=== PATIENT | female | born 1980 | race Caucasian/White ===

== ENCOUNTER 2022-11-07 08:40 | Outpatient (OUT) | payer OTHER, SELFPAY ==
--- NOTE | 2022-11-07 09:37 | PM.PRESUREVA ---
History of Present Illness History of Present Illness Chief complaint: menorrhagia, fibroids Narrative: Patient presents for preadmission testing. The patient reports a recent history of heavy abnormal uterine bleeding outside of her usual menstrual bleeding. She states since her visit with Dr. Raya she was placed on my Myfembree, and her bleeding has ceased. She denies fever, nausea, vomiting, or any other complaints. Review of Systems ROS Narrative REVIEW OF SYSTEMS: Negative except as stated in HPI, ten or more systems reviewed. Constitutional: No fever , chills, weakness ENT: No sore throat or epistaxis Cardiovascular: No edema, chest pain, palpitations, or activity intolerance Respiratory: No shortness of breath, cough, or wheezing Musculoskeletal: No joint pain or swelling Gastrointestinal: No abdominal pain, constipation, diarrhea, or vomiting Genitourinary: No dysuria or hematuria Neurological: No numbness, tingling, weakness, or headache Psychiatric: No mood changes PFSH PFSH Medical History (Updated 11/07/22 @ 09:22 by Taty Ashton NP) Surgical History (Updated 11/07/22 @ 09:22 by Taty Ashton NP) Family History (Updated 11/07/22 @ 09:22 by Taty Ashton NP) Other Aggressive behavior Family history of breast cancer Family history of colon cancer Family history of diabetes mellitus Family history of hypertension Family history of kidney cancer Family history of myocardial infarction Family history of prostate cancer Social History (Updated 11/07/22 @ 09:16 by Taty Ashton NP) Within the past year, how often did you have a drink containing alcohol: monthly or less Smoking status: Former smoker Non-prescribed substance use: denies use Previous occupational history: [employer] Highest level of school completed/degree received: high school graduate Meds Home Medications and Allergies Home Medications Medication Instructions Recorded Confirmed Type ferrous sulfate 325 mg (65 mg 325 mg PO BID 11/07/22 11/07/22 History iron) tablet (Feosol) relugolix 40 mg-estradiol 1 1 tab PO DAILY 11/07/22 11/07/22 History mg-norethindrone acetate 0.5 mg tablet (Myfembree) Allergies Allergy/AdvReac Type Severity Reaction Status Date / Time No Known Drug Allergies Allergy Verified 11/07/22 09:14 Exam Narrative Exam Narrative: Constitutional: Awake, alert, comfortable, well-appearing, nontoxic, interactive, vital signs as charted Head: Normocephalic, atraumatic Neck: Supple, normal appearance, normal range of motion, no meningeal signs, no lymphadenopathy Respiratory: No respiratory distress, breath sounds clear Cardiovascular: Regular rate and rhythm, strong and regular heart tones Abdomen: Nontender, normal bowel sounds, soft, no CVA tenderness Musculoskeletal: Normal gait, no swelling or edema Skin: No rashes or induration, no lesions, only visible skin inspected Neuro: No neurological deficits, normal sensation Psychiatric: Oriented ?3, normal affect Assessment and Plan Assessment and Plan (1) Abnormal uterine bleeding: (2) Anemia: (3) Menorrhagia: (4) Pelvic pain: (5) Uterine fibroid: Plan D & C, hysteroscopy, possible mild sure, endometrial ablation/Rupa scheduled with Dr. Raya 11/21/2022.
== END 2022-11-07 08:41 | disposition home or self-care (01) ==
LOC: PST 08:46
PROVIDERS: Visit Provider Obstetrics & Gynecology
DX: Z01.818 Encounter for other preprocedural examination (principal); N92.1 Excessive and frequent menstruation with irregular cycle; D25.9 Leiomyoma of uterus, unspecified; N93.9 Abnormal uterine and vaginal bleeding, unspecified; R10.2 Pelvic and perineal pain
CPT/HCPCS: G0463

== ENCOUNTER 2022-11-21 11:20 | Day surgery (SDC) | payer OTHER, SELFPAY ==
[2022-11-07 09:17] VITALS: BP 136/96; PULSE 88; RESP 18; TEMP 36.4; O2SAT 95; BMI 43.9
[2022-11-21] VITALS (9 sets, daily range): BP systolic 116–162; BP diastolic 73–93; PULSE 80–104; RESP 12–18; TEMP 36.2–36.4; O2SAT 94–99; BMI 44.0
[2022-11-21 11:40] LABS: Basophils Absolute Auto 0.1 10^3/uL (0.0-0.1); Basophils Percent Auto 1.4 % (0.2-2.0); Eosinophils Absolute Auto 0.1 10^3/uL (0.0-0.7); Eosinophils Percent Auto 1.7 % (0.9-7.0); Hematocrit 37.2 % (36.0-48.0); Hemoglobin 11.5 g/dL (12.0-16.0); Immature Granulocytes Abs Auto 0.02 10^3/uL (0.00-0.03); Immature Granulocytes Pct Auto 0.3 % (0.0-0.5); Lymphocytes Percent Auto 26.1 % (20.5-60.0); Mean Corpuscular HGB Conc 30.9 g/dL (29.9-35.2); Mean Corpuscular Hemoglobin 25.4 pg (26.7-34.0); Mean Corpuscular Volume 82.3 fL (81.0-99.0); Mean Platelet Volume 10.4 fL (9.5-13.5); Monocytes Absolute Auto 0.8 10^3/uL (0.3-0.8); Monocytes Percent Auto 10.4 % (1.7-12.0); Neutrophils Absolute Auto 4.6 10^3/uL (1.4-6.5); Neutrophils Percent Auto 60.1 % (43.0-75.0); Platelet Count 328 10^3/uL (150-450); Red Blood Count 4.52 10^6/uL (4.20-5.40); White Blood Count 7.7 10^3/uL (4.0-11.0)
[2022-11-21] MEDS: LACTATED RINGER'S SOLUTION 1,000 ML 50 ML IV (11:45)
[2022-11-21 12:05] LABS: HCG Quantitative <1 mIU/mL
--- NOTE | 2022-11-21 13:55 | PM.ONB ---
Brief Operative Note Date of procedure: 11/21/22 Pre-op diagnosis: menorrhagia Post-op diagnosis: same Procedure: NAME OF PROCEDURE: [ d&c hysteroscopy with myosure] PROCEDURE: The patient was taken back to the Operating Room where she was prepped and draped in normal sterile fashion after being placed under general anesthesia without difficulty. She was also placed in the dorsal lithotomy position. A weighted speculum was placed in the patient's vagina. The anterior lip of the cervix was identified and grasped with a single tooth tenaculum. The patient's uterus was then sounded roughly to [ 9 ] cm. The patient was then gently dilated using Hegar dilators. The hysteroscope was passed through the patient's cervix into the uterus. Both ostia were identified. slightly thickened appearing endometrium. Large intramural fibroid was noted. myosure was attempted unable to perform dt size and density of fibroid. No gross evidence of polyps or malignancy. Sharp currettage was peformed The hysteroscope was then removed from the patient's uterus. The endometrial curettings were sent out to pathology. The single tooth tenaculum was then removed from the patient's anterior lip of the cervix where excellent hemostasis was noted. All instruments were removed from the patient's vagina. Anesthesia: GETA Surgeon: Tramaine Raya Estimated blood loss (mL): 5 Pathology: other (endometrial currettings) Condition: stable Disposition: PACU
[2022-11-21] MEDS: PROMETHAZINE HCL 25 MG TABLET PO (14:37)
== END 2022-11-21 15:40 | disposition home or self-care (01) ==
PROVIDERS: Visit Provider Obstetrics & Gynecology
PROC: (CPT 58558; principal; 2022-11-21 13:05)
DX: N92.1 Excessive and frequent menstruation with irregular cycle (principal); D25.9 Leiomyoma of uterus, unspecified; Z87.891 Personal history of nicotine dependence; Z79.899 Other long term (current) drug therapy
CPT/HCPCS: 58558; 36415; 84702; 85025; 88305; J1170; J2704

== ENCOUNTER 2023-03-02 07:45 | Outpatient (OUT) | payer OTHER, SELFPAY ==
--- NOTE | 2023-03-02 08:02 | ECG_ITS ---
[facility] Test Date: 2023-03-02 Pat Name: IMELDA KAY Department: Room: - Gender: Female Medication Aide: : 1980 Requested By: LATONYA DOMINGUEZ Order Number: [id number] Reading MD: RICHA DURAND Measurements Intervals [place] Rate: 72 P: 79 [place]: 138 QRS: 67 QRSD: 92 T: 89 QT: 354 QTc: 390 Interpretive Statements SINUS RHYTHM No previous ECG available for comparison Electronically Signed On 03-03-2023 6:49:39 EDT by RICHA DURAND
--- NOTE | 2023-03-02 08:40 | PM.PRESUREVA ---
History of Present Illness History of Present Illness Chief complaint: MENORRHAGIA Narrative: Patient presents for preadmission testing. The patient reports a long history of heavy painful periods. The patient states she had a D and C done here in November of this year and has had not had any improvement with her symptoms. She is currently taking megestrol with some relief of the bleeding. Review of Systems ROS Narrative REVIEW OF SYSTEMS: Negative except as stated in HPI, ten or more systems reviewed. Constitutional: No fever , chills, weakness ENT: No sore throat or epistaxis Cardiovascular: No edema, chest pain, palpitations, or activity intolerance Respiratory: No shortness of breath, cough, or wheezing Musculoskeletal: No joint pain or swelling Genitourinary: No dysuria or hematuria Neurological: No numbness, tingling, weakness, or headache Psychiatric: No mood changes PFSH PFSH Medical History (Updated 03/02/23 @ 08:21 by Taty Ashton NP) Abnormal uterine bleeding ?N93.9 - Abnormal uterine and vaginal bleeding, unspecified (ICD-10) Anemia ?D64.9 - Anemia, unspecified (ICD-10) Dyspareunia Heartburn ?R12 - Heartburn (ICD-10) Kidney stones ?N20.0 - Calculus of kidney (ICD-10) Menorrhagia ?N92.0 - Excessive and frequent menstruation with regular cycle (ICD-10) Pelvic pain ?R10.2 - Pelvic and perineal pain (ICD-10) Postoperative nausea and vomiting ?R11.2 - Nausea with vomiting, unspecified (ICD-10) ?Z98.890 - Other specified postprocedural states (ICD-10) Uterine fibroid ?D25.9 - Leiomyoma of uterus, unspecified (ICD-10) Surgical History (Updated 03/02/23 @ 08:24 by Taty Ashton NP) History of breast biopsy ?Z98.890 - Other specified postprocedural states (ICD-10) History of cholecystectomy ?Z90.49 - Acquired absence of other specified parts of digestive tract (ICD-10) History of dilation and curettage (11/21/22) ?Z98.890 - Other specified postprocedural states (ICD-10) History of tubal ligation ?Z98.51 - Tubal ligation status (ICD-10) S/P cystoscopy ?Z98.890 - Other specified postprocedural states (ICD-10) Status post biopsy of uterine cervix ?Z98.890 - Other specified postprocedural states (ICD-10) Family History (Updated 11/07/22 @ 09:22 by Taty Ashton NP) Other Aggressive behavior Family history of breast cancer Family history of colon cancer Family history of diabetes mellitus Family history of hypertension Family history of kidney cancer Family history of myocardial infarction Family history of prostate cancer Social History (Updated 11/07/22 @ 09:16 by Taty Ashton NP) Within the past year, how often did you have a drink containing alcohol: monthly or less Smoking status: Former smoker Non-prescribed substance use: denies use Previous occupational history: [employer] Highest level of school completed/degree received: high school graduate Meds Home Medications and Allergies Home Medications Medication Instructions Recorded Confirmed Type relugolix 40 mg-estradiol 1 1 tab PO DAILY 11/07/22 03/02/23 History mg-norethindrone acetate 0.5 mg tablet (Myfembree) megestrol 20 mg tablet 20 mg PO DAILY 03/02/23 03/02/23 History Allergies Allergy/AdvReac Type Severity Reaction Status Date / Time No Known Drug Allergies Allergy Verified 03/02/23 08:20 Exam Narrative Exam Narrative: Constitutional: Awake, alert, comfortable, well-appearing, nontoxic, interactive, vital signs as charted Head: Normocephalic, atraumatic Neck: Supple, normal appearance, normal range of motion, no meningeal signs, no lymphadenopathy Respiratory: No respiratory distress, breath sounds clear Cardiovascular: Regular rate and rhythm, strong and regular heart tones Abdomen: Nontender, normal bowel sounds, soft, no CVA tenderness Musculoskeletal: Normal gait, no swelling or edema Skin: No rashes or induration, no lesions, only visible skin inspected Neuro: No neurological deficits, normal sensation Psychiatric: Oriented ?3, normal affect Assessment and Plan Assessment and Plan (1) Abnormal uterine bleeding: (2) Dyspareunia: (3) Menorrhagia: (4) Pelvic pain: (5) Uterine fibroid: Plan Robot assisted laparoscopic hysterectomy, possible exploratory laparotomy, possible bilateral salpingo-oophorectomy, possible cystoscopy scheduled with Dr. Raya 03/23/2023.
[2023-03-02 08:54] LABS: Basophils Absolute Auto 0.1 10^3/uL (0.0-0.1); Basophils Percent Auto 1.7 % (0.2-2.0); Eosinophils Absolute Auto 0.1 10^3/uL (0.0-0.7); Eosinophils Percent Auto 1.4 % (0.9-7.0); Hematocrit 33.4 % (36.0-48.0); Immature Granulocytes Abs Auto 0.02 10^3/uL (0.00-0.03); Immature Granulocytes Pct Auto 0.3 % (0.0-0.5); Lymphocytes Absolute Auto 1.8 10^3/uL (1.2-3.8); Lymphocytes Percent Auto 26.9 % (20.5-60.0); Mean Corpuscular HGB Conc 29.9 g/dL (29.9-35.2); Mean Corpuscular Hemoglobin 23.5 pg (26.7-34.0); Mean Corpuscular Volume 78.4 fL (81.0-99.0); Mean Platelet Volume 10.9 fL (9.5-13.5); Monocytes Absolute Auto 0.8 10^3/uL (0.3-0.8); Monocytes Percent Auto 11.6 % (1.7-12.0); Neutrophils Absolute Auto 3.9 10^3/uL (1.4-6.5); Neutrophils Percent Auto 58.1 % (43.0-75.0); Platelet Count 368 10^3/uL (150-450); Red Blood Count 4.26 10^6/uL (4.20-5.40); Red Cell Distribution Width 15.5 % (11.0-15.0); White Blood Count 6.7 10^3/uL (4.0-11.0)
[2023-03-02 09:13] LABS: INR 0.93; Partial Thromboplastin Time 26.2 sec (22.3-36.2); Prothrombin Time 9.9 sec (9.0-11.6)
[2023-03-02 09:22] LABS: Alanine Aminotransferase 26 U/L (14-59); Albumin Level 3.6 g/dL (3.4-5.0); Alkaline Phosphatase 84 U/L (46-116); Anion Gap 14.2; Aspartate Amino Transferase 8 U/L (15-37); BUN Creatinine Ratio 20.8; Bilirubin Direct 0.1 mg/dL (0.0-0.2); Bilirubin Total 0.3 mg/dL (0.2-1.0); Calcium 8.7 mg/dL (8.5-10.1); Carbon Dioxide 23.3 mmol/L (21.0-32.0); Chloride 109 mmol/L (98-107); Estimated GFR (African America >60 (>=60); Estimated GFR (Non-African Ame >60 (>=60); Globulin 3.6 g/dL; Glucose 103 mg/dL (74-106); Potassium 4.5 mmol/L (3.5-5.1); Sodium 142 mmol/L (136-145); Total Protein 7.2 g/dL (6.4-8.2)
== END 2023-03-02 07:46 | disposition home or self-care (01) ==
PROVIDERS: Visit Provider Obstetrics & Gynecology
DX: Z01.810 Encounter for preprocedural cardiovascular examination (principal); Z01.812 Encounter for preprocedural laboratory examination; Z86.018 Personal history of other benign neoplasm; R10.2 Pelvic and perineal pain; N92.0 Excessive and frequent menstruation with regular cycle
CPT/HCPCS: 80048; 80076; 85025; 85610; 85730; 86850; 86900; 86901; 93005; G0463

== ENCOUNTER 2023-03-09 14:25 | Outpatient (REF) | payer OTHER, SELFPAY ==
[2023-03-14 10:11] LABS: Age Gdln ACOG Testing Note (.); HPV Aptima Negative (Negative); IGP, Aptima HPV, rfx 16/18,45 Note (.)
== END 2023-03-09 14:26 | disposition home or self-care (01) ==
LOC: LAB 14:25
PROVIDERS: Visit Provider Obstetrics & Gynecology
DX: Z01.419 Encounter for gynecological examination (general) (routine) without abnormal findings (principal)
CPT/HCPCS: 87624; G0145

== ENCOUNTER 2023-03-11 06:04 | Day surgery (SDC) | payer OTHER, SELFPAY ==
[2023-03-02 08:32] VITALS: BP 126/92; PULSE 81; RESP 18; TEMP 36.2; O2SAT 98; BMI 42.9
[2023-03-11] VITALS (17 sets, daily range): BP systolic 102–162; BP diastolic 66–93; PULSE 54–105; RESP 14–22; TEMP 36.2–36.9; O2SAT 96–99; BMI 42.9; BMI 43.9
[2023-03-11 06:37] LABS: HCG Quantitative <1 mIU/mL
[2023-03-11] MEDS: LACTATED RINGER'S SOLUTION 1,000 ML 50 ML IV (06:59)
[2023-03-11] MEDS: CEFAZOLIN SODIUM/DEXTROSE,ISO 2 GM/50 ML PIGGYBACK IV ×3 (07:26→20:54)
--- NOTE | 2023-03-11 10:31 | PM.ONB ---
Brief Operative Note Date of procedure: 03/11/23 Pre-op diagnosis: menorrhagia, uterine fibroids, pelvic pain, dyspareunia Post-op diagnosis: same as pre-op Procedure: NAME OF PROCEDURE: ? Robotic assisted laparoscopic hysterectomy with cystoscopy, bilateral salpingectomy Multiple uterine fibroids, enlarged uterus PROCEDURE:? The patient was taken back to the operating room, where she was prepped and draped in the normal sterile fashion after being placed in the dorsal lithotomy position.? Patient?s anesthesia was found to be adequate.? Surgical timeout was performed using two patient identifiers.? SCDs were on and in place.? Two grams of Ancef were given prior to the surgery.? Sterile [place] catheter was inserted.? Standard size VCare was secured to the uterine cervix and the surgeon changed gloves.? Attention then was turned to the patient's abdomen, where a supraumbilical incision was then made.? Two S retractors were used to identify the patient?s fascia.? The fascia was then tented up using Zoran clamps and the patient?s fascia was incised sharply.? Patient?s abdomen was identified and entered bluntly.? The patient had the trocar placed and a pneumoperitoneum was obtained.? Approximately 4 liters of CO2 gas was used.? The camera was then placed through the trocar.? At this time, two robot trocars were placed in the patient?s left and right side, two hand widths from the midline, and this was placed under direct visualization.? The patient?s tube on the right side was tented up and the vessel sealer was then used to come across the mesosalpinx, and this was carried down to the uterine ovarian ligament.? The vessel sealer was carried down serially to the broad ligament, to the area of the bladder flap, which was then created anteriorly, and the uterine arteries were skeletonized and sealed using the vessel sealer.? The colpotomy was made using the monopolar cautery on cut, and this was carried circumferentially, posteriorly to anteriorly, until the uterus was amputated.? The specimen was then removed intact through the vagina, without difficulty.? The vagina was then closed using two running V-Loc in a non-lock fashion.? The robot was undocked.? The abdomen was desufflated.? The skin defects were closed using 4-0 Vicryl.? Please note, the fascia was closed using 0 Vicryl.? Sponge, lap and needle counts were correct x2.? Patient was taken to recovery room in stable condition.? The patient was awakened by Anesthesia first.? Patient tolerated procedure well.??Please note left ovarian cystectomy was performed using the vessel sealer Anesthesia: YAZMIN Surgeon: Tramaine Raya Waste Specialist: Jessica Kathleen Estimated blood loss (mL): 150 Pathology: other (uterus and tubes) Condition: stable Disposition: PACU
--- NOTE | 2023-03-11 11:08 | PC.NURSE ---
VINHEENT IS SLEEPING AND SNORING AT TIS TIME.
--- NOTE | 2023-03-11 11:51 | PC.NURSE ---
denies need to void at present time
[2023-03-11] MEDS: LACTATED RINGER'S SOLUTION 1,000 ML 125 ML IV ×2 (13:40→20:56)
[2023-03-11] MEDS: DOCUSATE SODIUM 100 MG CAPSULE PO ×2 (13:41→20:56)
[2023-03-11] MEDS: OXYCODONE HCL/ACETAMINOPHEN 5MG/325MG 1 TAB PO ×2 (13:41→20:54)
[2023-03-11] MEDS: KETOROLAC TROMETHAMINE 30 MG/ML VIAL IVP (18:00)
[2023-03-12 04:35] VITALS: BP 141/82; PULSE 104; RESP 16; TEMP 36.8; O2SAT 97
[2023-03-12 06:22] LABS: Basophils Absolute Auto 0.1 10^3/uL (0.0-0.1); Basophils Percent Auto 0.7 % (0.2-2.0); Eosinophils Percent Auto 0.1 % (0.9-7.0); Hematocrit 33.5 % (36.0-48.0); Hemoglobin 9.7 g/dL (12.0-16.0); Immature Granulocytes Abs Auto 0.04 10^3/uL (0.00-0.03); Immature Granulocytes Pct Auto 0.3 % (0.0-0.5); Mean Corpuscular Hemoglobin 23.2 pg (26.7-34.0); Mean Platelet Volume 10.3 fL (9.5-13.5); Monocytes Absolute Auto 1.2 10^3/uL (0.3-0.8); Neutrophils Absolute Auto 8.2 10^3/uL (1.4-6.5); Neutrophils Percent Auto 71.9 % (43.0-75.0); Platelet Count 336 10^3/uL (150-450); Red Blood Count 4.19 10^6/uL (4.20-5.40); Red Cell Distribution Width 16.3 % (11.0-15.0); White Blood Count 11.5 10^3/uL (4.0-11.0)
[2023-03-12] MEDS: IBUPROFEN 600 MG TABLET 800 MG PO (07:56)
--- OUTSIDE RECORDS SUMMARY | 2023-04-21 14:08 | XMS_ITS | CCD ---
Author Name Unknown Address [address] [place] [address] [address] [place] [id number] Organization [facility] Care Team Providers Care Shipping Team Leader Name Role Phone MISC, DOCTOR Attending Unavailable MISC, DOCTOR Admitting Unavailable CECILIA, ALBERTO Attending Unavailable CECILIA, ALBERTO Attending Unavailable Encounters Encounter Date Encounter Type Care Provider Facility Start: 04-08-2023 End: 04-08-2023 ambulatory ALBERTO CECILIA Not Available Start: 03-18-2023 End: 03-18-2023 ambulatory ALBERTO CECILIA Not Available Start: 03-15-2020 End: 03-15-2020 Patient encounter procedure DOCTOR MISC Facility: Payers Date Payer Category Payer Unknown [id number] 1980 Unknown [id number] 1980 Unknown [id number] 1961 Self-pay Unknown [id number] Summary Purpose Family History No Family History Records FoundNo Family History Records Found Advance Directives No Advanced Directives Records FoundNo Advanced Directives Records Found Additional Source Comments INFORMATION SOURCE (unrecogn ized section and content) DATE CREATED AUTHOR 03/16/2020 [facility] DATE CREATED AUTHOR JIM HULL 04/10/2023 [facility] EPIC FOR RECORDS PERTAINING TO PATIENTS WHO ARE OR HAVE BEEN ENROLLED IN A CHEMICAL DEPENDENCY/SUBSTANCEABUSE PROGRAM, SOME INFORMATION MAY BE OMITTED. This clinical summary was aggregated from multiple sources. Caution should be exercised in using it in the provision of clinical care. This summary normalizes information from multiple sources, and as a consequence, information in this document may materially change the coding, format and clinical context of patient data. In addition, data may be omitted in some cases. CLINICAL DECISIONS SHOULD BE BASED ON THE PRIMARY CLINICAL RECORDS. [employer] [facility]. provides no warranty or guarantee of the accuracy or completeness of information in this document.
== END 2023-03-12 08:42 | disposition home or self-care (01) ==
LOC: SURGOUT 11:32 → MS 03-12 08:17
PROVIDERS: Visit Provider Obstetrics & Gynecology
PROC: (CPT 58573; principal; 2023-03-11 07:30)
DX: R10.2 Pelvic and perineal pain (principal); N92.0 Excessive and frequent menstruation with regular cycle; Z86.018 Personal history of other benign neoplasm; N94.10 Unspecified dyspareunia; N85.2 Hypertrophy of uterus; N88.8 Other specified noninflammatory disorders of cervix uteri; D25.9 Leiomyoma of uterus, unspecified; Z98.51 Tubal ligation status; Z87.891 Personal history of nicotine dependence
CPT/HCPCS: 58573; 36415; 84702; 85025; 88307; 94667; 96365; 96375; J1170; J2704

== ENCOUNTER 2024-03-16 18:51 | Outpatient (REF) | payer OTHER, SELFPAY ==
--- OUTSIDE RECORDS SUMMARY | 2024-03-16 18:55 | XMS_ITS | CCD ---
Author Organization [facility] Care Team Providers Care Private Duty Rn Name Role Phone MISC, DOCTOR Attending Unavailable MISC, DOCTOR Admitting Unavailable CECILIA, ALBERTO Attending Unavailable CECILIA, ALBERTO Attending Unavailable Encounters Encounter Date Encounter Type Care Provider Facility Start: 04-08-2023 End: 04-08-2023 ambulatory ALBERTO CECILIA Not Available Start: 03-18-2023 End: 03-18-2023 ambulatory ALBERTO CECILIA Not Available Start: 03-15-2020 End: 03-15-2020 Patient encounter procedure DOCTOR MISC Facility: Payers Date Payer Category Payer Unknown [id number] 1980 Unknown [id number] 1980 Unknown [id number] 1961 Self-pay Unknown [id number] Summary Purpose Family History No Family History Records FoundNo Family History Records Found Advance Directives No Advanced Directives Records FoundNo Advanced Directives Records Found Additional Source Comments INFORMATION SOURCE (unrecogn ized section and content) DATE CREATED AUTHOR 03/16/2020 [facility] DATE CREATED AUTHOR JIM HULL 04/10/2023 [facility] EPIC FOR RECORDS [...] BE BASED ON THE PRIMARY CLINICAL RECORDS. [facility]. provides no warranty or guarantee of the accuracy or completeness of information in this document.
== END 2024-03-16 18:52 | disposition home or self-care (01) ==
LOC: LAB 18:51
PROVIDERS: Visit Provider Obstetrics & Gynecology
DX: Z01.419 Encounter for gynecological examination (general) (routine) without abnormal findings (principal)
CPT/HCPCS: 87624; 88175

== ENCOUNTER 2025-03-20 20:20 | Outpatient (REF) | payer OTHER, SELFPAY ==
--- OUTSIDE RECORDS SUMMARY | 2025-03-20 20:23 | XMS_ITS | CCD ---
Author Organization [facility] Care Team Providers Care Farm Marketer Name Role Phone MISC, DOCTOR Attending Unavailable MISC, DOCTOR Admitting Unavailable ALBERTO BROOKS Attending Unavailable LATONYA RAYA Attending Unavailable Unavailable Primary Care Provider Unavailabl e Medications Current Medications MedicationDrug Class(es)DatesSig (Normalized)Sig (Original)diclofenac sodium 75 mg delayed release oral tablet (1 source)Nonsteroidal Anti-inflammatory DrugStart: 19-19-4325cdes 1 tablet by mouth twice dailyDiclofenac Sodium 75 mg tablet,delayed release (DR/EC) Active 75 MG PO Twice daily 30 15 August 25, 2024 12:00amomeprazole 20 mg delayed release oral tablet (4 sources)Proton Pump Inhibitoromeprazole OTC (PriLOSEC OTC) 20 MG EC tablet 1 (one) time each day at the same time ActiveOmeprazole Magnesium (Prilosec Otc) 20 mg tablet,delayed release (DR/EC) (1 source)Start: 81-09-9504qvpi 1 tablet by mouth once dailyOmeprazole Magnesium (Prilosec Otc) 20 mg tablet,delayed release (DR/EC) Active 20 MG PO Daily August 25, 2024 12:00am Completed/Discontinued Medications MedicationDrug Class(es)DatesSig (Normalized)Sig (Original)acetaminophen 325 mg / oxyCODONE hydrochloride 5 mg oral tablet (3 sources)Opioid AgonistStart: 03-12-2023 End: 88-01-4387tilm 1 tablet by mouth every six hours as neededoxyCODONE- acetaminophen (Percocet) 5-325 MG tablet Take 1 tablet by mouth every 6 (six) hours if needed 03/12/2023 03/16/2024 Discontinued (Other)Iron (3 sources) End: 98-19-5968mewq (Slow Iron) 18 MG ER tablet Iron 03/16/2024 Discontinued (Other) Problems Active Problems Problem ClassificationProblemDateDocumented DateEpisodic/ChronicEsophageal disorders (1 source)Gastroesophageal reflux disease; Translations: [Gastro-esophageal reflux disease without esophagitis]47-07-4985RiselorBuwcavzzf disorders (4 sources)Menorrhagia; Translations: [Excessive and frequent menstruation with regular cycle]Onset: 210505-36-8468TzjgufgIxyum connective tissue disease (1 source)Plantar fasciitis of left foot; Translations: [Plantar fascial fibromatosis]31-21-8788UtkjwfbpWfqzm connective tissue disease (1 source)Plantar fascial fibromatosis; Translations: [Plantar fascial fibromatosis]28-74-4762CsyqdqmeUuleb screening for suspected conditions (not mental disorders or infectious disease) (2 sources)Patient encounter status; Translations: [Encounter for screening mammogram for malignant neoplasm of breast]66-56-5463Pziivcqq Past or Other Problems Problem ClassificationProblemDateDocumented DateEpisodic/ChronicBenign neoplasm of uterus (4 sources)Uterine leiomyoma; Translations: [Leiomyoma of uterus, unspecified] Onset: 392245-20-1048Qdethbdh Results Test NameValueInterpretationReference RangeFacilityIGP,APTIMA HPV,AGE GDLNon 74-10-6472MRV GDLN ACOG TESTINGNote.NOMS HealthcareComment on above:TESTS RESULT FLAG UNITS REF RANGE LAB Clinician Provided Cytology Information Source.............Vagina No. of containers..01 ThinPrep Vial Age Algo ACOG Yesica... FLAG LEGEND: L-Low Normal,H-High Normal,LL-Alert Low,HH-Alert High <-Panic Low,>-Panic High,A-Abnormal,AA-Critical Abnormal Performed at: 01 =[address] [address] Jeanette Hodges MD, HPV APTIMANegativeNegativeNOMS HealthcareComment on above:This nucleic acid amplification test detects fourteen high- risk HPV types (16,18,31,33,35,39,45,51,52,56,58,59,66,68) without differentiation. Performed at: =[address] [id number] Coater Helper: Jeanette Hodges MD, Phone: [phone] Performed at: [address] [id number] Coater Helper: Jeanette Hodges MD, Phone: [phone] IGP, APTIMA HPV, RFX 16/18,45Note.NOMS HealthcareComment on above:TESTS RESULT FLAG UNITS REF RANGE LAB DIAGNOSIS: 02 NEGATIVE FOR INTRAEPITHELIAL LESION OR MALIGNANCY. THIS SPECIMEN WAS RESCREENED PART OF OUR AIRPLANE PIL[employer] COMMERCIAL PROGRAM. Specimen adequacy: 02 Satisfactory for evaluation. Performed by: 02 Allison Wagner Outbound Sales Consultant ([facility]) QC reviewed by: 02 Sandi Wyatt, Outbound Sales Consultant ([facility]) . 02 Note: Note 02 The Pap smear is a screening test designed to aid in the detection of premalignant and malignant conditions of the uterine cervix. It is not a diagnostic procedure and should not be used as the sole means of detecting cervical cancer. Both false-positive and false-negative reports do occur. Test Methodology: Note 02 This liquid based ThinPrep(R) pap test was screened with the use of an image guided system. HPV Genotype Reflex Note 02 Criteria not met, HPV Genotype not performed. FLAG LEGEND: L-Low Normal,H-High Normal,LL-Alert Low,HH-Alert High <-Panic Low,>-Panic High,A-Abnormal,AA-Critical Abnormal Performed at: [address] [facility] [address] [address] Jeanette Hodges MD, [facility] Vital Signs Date TimeVital SignValuePerforming GkslmglzdHjbhmdmk15-73-0994 15:14-0400Body vqjqso714.18 cmSelect [facility]04-24-2025 15:14-0400Body mass index (BMI) [Ratio]43.5 kg/e3NambszvgfSelect [facility]04-24-2025 15:14-0400Body mapjihhcoqo52.3 [degF][facility]04-24-2025 15:14-0400Body dcxvoi838.09 kgSelect [facility]04-24-2025 15:14-0400Diastolic blood denohbzo18 mm[Hg][facility] 08-25-2024 15:14-0400Heart rate87 /minSelect Medical [facility] Clinic [facility] 08-25-2024 15:14-0400Respiratory rate14 /[facility] 08-25-2024 15:14-2015HdO3% (BldA) [Mass fraction]98 %[facility]04-24-2025 15:14-0400Systolic blood rygfpkau141 mm[Hg][facility]11-13-2024 14:52-0500Body mass index (BMI) [Ratio]42.88 kg/s8Ccwly Elver DO Work Phone: NOShriners Hospitals for ChildrenUvvemmsdfn36-99-4606 14:52-0500Body znurwp797.19 kgCorey Elver DO Work Phone: noShriners Hospitals for ChildrenXsmnytnbvq50-19-5265 14:52-0500Diastolic blood rrqykugq78 mm[Hg]Latonya Elver DO Work Phone: noShriners Hospitals for ChildrenMfybbykxdb90-33-6797 14:52-0500Systolic blood rgigyycc287 mm[Hg]Latonya Elver DO Work Phone: noME Healthcare Encounters Encounter DateEncounter TypeCare ProviderFacilityStart: 08-25-2024 End: 83-60-9143ebbuqkrbszJxciqgrti [facility] Work Phone: Start: 08-25-2024 End: 48-61-0460Fstcbll encounter procedureAdventhealth [facility] Work Phone: Start: 03-16-2024 End: 37-41-5680Mfkipxq encounter procedureCorey Elver DO Work Phone: noSh[facility] Work Phone: Start: 03-16-2024 End: 88-80-4759Tzdzntcd preventive med est patient 40-64yrsCorey Elver DO Work Phone: noms [facility] OBComment on above:Well woman exam with routine gynecological exam; Breast cancer screening by mammogramStart: 03-16-2024 End: 91-69-0629uzyewrrbryKQBIB FAZIONot AvailableStart: 03-16-2024 End: 35-56-1258Fumjso flowsheetCorey Elver DO Work Phone: noms BCP OBStart: 03-16-2024 End: 19-60-6934Dannkx flowsheetCorey Elver DO Work Phone: no[facility] OBStart: 03-16-2024 End: 23-54-4328Odnrkcpgf Result EncounterCorey Elver DO Work Phone: [facility] External Department UnsolicitedStart: 04-08-2023 End: 86-32-1905kdsrzivwanUYA RAMEYNot AvailableStart: 03-15-2020 End: 64-12-2393Puvspfk encounter procedureDOCTOR MISCFacility:H1 Procedures DateProcedureProcedure DetailPerforming ClinicianStart: 44-03-0698SBN,APTIMA HPV,AGE GDLNCorey Elver DO Work Phone: Start: 95-30-5893IgmpzpikoeuFhzwe Elver DO Work Phone: Plan of Treatment DateCare ActivityDetailAuthorStart: 03-20-2025 End: 48-18-6810Yxhfcri encounter sbihubwue12/17/2025 4:00 PM EST Office Visit [facility] [address] [place] [address] Latonya Raya, DO [address] [place] [address] [facility] OBStart: 03-16-2024 End: 84-74-7854AY Breast - bilateral ScreeningBilateral screening mammogram Imaging Routine Breast cancer screening by mammogram Expected: 03/16/2024 (Approximate), Expires: 05/16/2025[facility] Work Phone: comment on above:Expected: 03/16/2024 (Approximate), Expires: 05/16/2025Start: 14-68-1108Ntwoskkvc vaccinationInfluenza Vaccine (#1) [facility] HealthcareStart: 40-53-1751Nprgirfng for malignant neoplasm of breast MammogramNOMS HealthcareStart: 15-55-5684Vxkxukgth for malignant neoplasm of cervixNOMS HealthcareStart: 84-15-9067Apuupnbrh for malignant neoplasm of cervix Pap SmearNOMS HealthcareStart: 23-70-0199Fvkdvppeu for malignant neoplasm of colonNOMS HealthcarePatient EducationPlantar fasciitisFirelands Regional Med Center Work Phone: THIN PREP TIS PAP AND HR HPV DNATHIN PREP TIS PAP AND HR HPV DNA Pathology and Cytology Routine Well woman exam with routine gynecol ogical exam Ordered: 03/16/2024NOMS HealthcareComment on above:Ordered: 03/16/2024 Payers DatePayer CategoryPayerPolicy [id number] [place] [address] [id number] [id number] Social History DateTypeDetailFacilityStart: 80-05-7823Oynglpj smoking status NHISTobacco smoking consumption unknownNOME HealthcareStart: 31-11-9500Hmo assigned at FemaleNOME HealthcareStart: 38-40-9646Klggmt identityIdentifies as female gender (finding)[facility] HealthcareStart: 15-42-2438Mqjwou orientationHeterosexual (finding)[facility] HealthcareStart: 72-80-1012Ysoqeel smoking status NHISEx-smoker (finding)[facility] Centertart: 05-79-2826XbiYejbmg (finding) [facility] History of Present illness Narrative 03-16-2024 Note Date & VuvyAffrDbpztaqa91-70-2051 History of Present illness Narrative* Sheri Quinonez, HOME PERFORMANCE CONSULTANT - 03/16/2024 2:30 PM EST Reason for Appointment: Patient ID: Vane Chaves is a 44 y.o. female who presents for Well Women Visit Patient presents today for Annual Exam. MEDICATIONS Current Outpatient Medications Medication Instructions omeprazole OTC (PriLOSEC OTC) 20 MG EC tablet Every 24 hours ALLERGIES Allergies Allergen Reactions Other Unknown PROBLEMS Active Ambulatory Problems Diagnosis Date Noted Uterine fibroid 10/24/2022 Menorrhagia 10/24/2022 Resolved Ambulatory Problems Diagnosis Date Noted No Resolved Ambulatory Problems No Additional Past Medical History HISTORY PAST MEDICAL HISTORY SOCIAL HISTORY Past Medical History: Diagnosis Date Menorrhagia Uterine fibroid Social History Tobacco Use Smoking status: Not on file Smokeless tobacco: Not on file Substance Use Topics Alcohol use: Not on file Drug use: Not on file FAMILY HISTORY Family History Problem Relation Name Age of Onset Cancer Mother Diabetes Mother Cancer Father SURGICAL HISTORY Past Surgical History: Procedure Laterality Date BI US GUIDED BREAST LOCALIZATION AND BIOPSY LEFT Left 12/12/2021 BI US GUIDED BREAST LOCALIZATION AND BIOPSY LEFT 12/12/2021 BREAST BIOPSY DILATION AND CURETTAGE OF UTERUS 11/21/2022 ENDOMETRIAL BIOPSY GALL BLADDER HYSTEROSCOPY 11/21/2022 KIDNEY STONE SURGERY kidney stones x2 LAPAROSCOPIC HYSTERECTOMY 03/11/2023 Da Elmer Lap. ROBOTIC ASSISTED HYSTERECTOMY 03/12/2023 w/cystoscopy and bilat salpingectomy REVIEW OF SYSTEMS Review of Systems: Review of Systems Constitutional: Negative. HENT: Negative. Eyes: Negative. Respiratory: Negative. Cardiovascular: Negative. Gastrointestinal: Negative. Genitourinary: Negative. Musculoskeletal: Negative. Skin: Negative. Neurological: Negative. All other systems reviewed and are negative. Hematological: Negative. Endocrine: Negative. Allergic/Immunologic: Negative. OBJECTIVE Objective: Physical Exam Constitutional: Appearance: Normal appearance. She is well-developed. Genitourinary: Vulva normal. Vaginal cuff intact. Cervix is absent. Uterus is absent. Cardiovascular: Rate and Rhythm: Normal rate and regular rhythm. Pulmonary: Effort: Pulmonary effort is normal. Breath sounds: Normal breath sounds. Abdominal: General: Bowel sounds are normal. There is no distension. Palpations: Abdomen is soft. Tenderness: There is no abdominal tenderness. There is no guarding or rebound. Musculoskeletal: General: No swelling. Normal range of motion. Right lower leg: No edema. Left lower leg: No edema. Neurological: Mental Status: She is alert and oriented to person, place, and time. Skin: General: Skin is warm and dry. Psychiatric: Mood and Affect: Mood normal. Behavior: Behavior normal. Vitals and nursing note reviewed. Exam conducted with a manager process excellence present. Vitals: Estimated body mass index is 42.88 kg/m as calculated from the following: Height as of 12/01/22: 5' 7 . Weight as of this encounter: 273 lb 12.8 oz. BP: 120/76 No LMP recorded. ASSESSMENT & PLAN ICD-10-CM 1. Well woman exam with routine gynecological exam Z01.419 THIN PREP TIS PAP AND HR HPV DNA 2. Breast cancer screening by mammogram Z12.31 Bilateral screening mammogram Bilateral screening mammogram Annual: Patient presents today for an annual exam. Patient states she is doing well and has no complaints. Pap was obtained without difficulty and patient given mammogram order to have scheduled/obtained. Orders Placed This Encounter Procedures Bilateral screening mammogram Follow Up: Patient is to return in one year for annual unless needed otherwise. Documented by Sheri Quinonez LPN on behalf of: Latonya Raya DO documented in this encounterG[facility] Evaluation note Note Date & TypeNoteFacilityEvaluation note* Diagnosis Well woman exam with routine gynecological exam Routine gynecological examination Breast cancer screening by mammogram documented in this encounter [facility] Evaluation note Note Date & TypeNoteFacilityEvaluation note* Diagnosis Onset Date Resolution Status Admit Date Plantar fasciitis of left foot acuteApril 2024 3:09pm [facility] Work Phone: Summary Purpose Family History Relationship Condition Age at Onset Recorded Date/T claudia mother Diabetes mellitus Unknown Malignant neoplasmUnknownfatherMalignant neoplasmUnknown Advance Directives Advance Directive Response Recorded Date/ Time Advance Directives No August 25, 025 3:04pm Chief Complaint and Reason for Visit Chief Complaint Admit Date left heel pain no injury August 25 3:09pm Reason for Visit Admit Date Plantar fasciitis of left foot August 3:09pm Additional Source Comments INFORMATION SOURCE (unrecogn ized section and content) DATE CREATED AUTHOR 03/16/2020 [facility] DATE CREATED AUTHOR AUTHOR'S NABIL HULL 03/18/2024 [facility] EPIC Reason for Visit (unrecogniz ed section and content) ReasonCommentsWell Women Visit Care Teams (unrecognized sec tion and content) Team Status: Active Member Role Status Dates NON STAFF Primary Care Provider Active Team Status: Inactive Member Role Status Dates Shawna Johnson APRN Attending Provider Active Start: August 25, 2024 End: August 25, 2024NON STAFFPrimary Care ProviderActiveStart: August 25, 2024 End: August 25, 2024 Goals (unrecognized section and content) Goals may be documented in a n alternate section FOR RECORDS PERTAINING TO PATIENTS WHO ARE [...] BE BASED ON THE PRIMARY CLINICAL RECORDS. [facility] [employer] [facility]. provides no warranty or guarantee of the accuracy or completeness of information in this document.
[2025-03-22 21:14] LABS: Age Gdln ACOG Testing Note (.); IGP, Aptima HPV, rfx 16/18,45 Note (.)
== END 2025-03-20 20:21 | disposition home or self-care (01) ==
LOC: LAB 20:20
PROVIDERS: Visit Provider Nurse Practitioner Family
DX: Z01.419 Encounter for gynecological examination (general) (routine) without abnormal findings (principal)
CPT/HCPCS: 87624; 88175